=== PATIENT | male | born 1990 | race Caucasian/White ===

== ENCOUNTER 2017-04-28 19:55 | Emergency (ER) | payer SELFPAY ==
[2017-04-28 19:56] VITALS: BP 127/71; PULSE 90; RESP 16; TEMP 100.1; O2SAT 98
[2017-04-28] MEDS ORDERED: CEPH-460 PO (22:23)
[2017-04-28] MEDS ORDERED: BACT800T5 PO (22:23)
--- NOTE | 2017-04-28 22:26 | PD ---
HPI Chief Complaint: Skin Problem Time Seen by Provider: 22:17 Travel History International Travel<30 days: No Contact w/Intl Traveler<30days: No Traveled to known affect area: No History of Present Illness HPI 27-year-old white male presents to emergency department with a painful lump under his left armpit for the last 4 days. It has become increasingly red and tender. He denies any history of skin infections in the past. No fever chills. Pain is moderate. PFSH Past Medical History Medical History: Denies Significant Hx Tetanus Vaccination: < 5 Years ?: Not Past Surgical History Surgical History: No Previous Surgery Social History Alcohol Use: No Tobacco Use: Yes (PACK A DAY ) Substance Use: No Allergies-Medications (Allergen,Severity, Reaction): Coded Allergies: No Known Allergies (Unverified , 04/28/17) Reported Meds & Prescriptions Reported Meds & Active Scripts Active Keflex (Cephalexin) 500 Mg Capsule 500 Mg PO Q6H 28 Days Bactrim DS (Sulfamethoxazole-Trimethoprim) 800-160 Mg Tab 1 Tab PO BID Review of Systems Except as stated in HPI: all other systems reviewed are Neg Physical Exam Narrative GENERAL: This is a well-nourished, well-developed patient, in no apparent distress. SKIN: Patient has a tender erythematous nodular density under his left axilla consistent with a superficial abscess. There is no fluctuance or pointing. IND is not indicated at this time. This measures approximately 2 x 2 centimeters.. Warm and dry. HEAD: Atraumatic. Normocephalic. EYES: PERRL, EOMI, no discharge or injection. No scleral icterus. EARS: Clear NOSE: Nasal turbinates appear normal. THROAT: Mucosa pink and moist. Airway patent. NECK: Trachea midline. supple, moves head freely. LUNGS: Clear to auscultation. CV: Regular in rhythm. ABDOMEN: Soft nontender. EXT: No clubbing cyanosis or edema. Data Data Last Documented VS Vital Signs Date Time Temp Pulse Resp B/P (MAP) Pulse Ox O2 Delivery O2 Flow Rate FiO2 04/28/17 19:56 100.1 90 16 127/71 (89) 98 Room Air Orders Orders Cephalexin (Keflex) (04/28/17 22:30) Sulfamet-Trimeth Ds 800-160 Mg (Bactrim (04/28/17 22:30) [facility] Medical Decision Making Medical Screen Exam Complete: Yes Emergency Medical Condition: Yes Medical Record Reviewed: Yes Differential Diagnosis MDM: High Differential diagnoses: Abscess, folliculitis, cellulitis, lymphangitis, abrasion, contact dermatitis Narrative Course Patient has a developing abscess in the left axilla. No ideas indicated at this time. He is encouraged to use warm compresses and take antibiotics. Patient's given Keflex 500 and Bactrim DS here in the ER. Diagnosis Primary Impression: Abscess of left axilla Patient Instructions: General Instructions Additional Instructions: Rest. Elevation. keep clean and dry. Warm compresses. Daily wound care with soap, water and Neosporin. Three Advil every 6 hours. Bactrim DS and Keflex. Follow-up with a primary care doctor in one week. Return to the ER for any problems. Med/Other Pt SpecificInfo: Prescription(s) given Scripts Cephalexin (Keflex) 500 Mg Capsule 500 MG PO Q6H for Infection for 28 Days, CAP 0 Refills Prov: Fabi Waller MD 04/28/17 Sulfamethoxazole-Trimethoprim (Bactrim DS) 800-160 Mg Tab 1 TAB PO BID for Infection, #20 TAB 0 Refills Prov: Fabi Waller MD 04/28/17 Disposition: 01 DISCHARGE HOME Condition: Stable Chilango Noguera Apr 28, 2017 22:26
[2017-04-28] MEDS ORDERED: SULFAMETHOXAZOLE-TRIMETHOPRIM DS 800-160 MG TAB PO ONE (22:30)
[2017-04-28] MEDS ORDERED: CEPHALEXIN MONOHYDRATE 500 MG CAP PO ONE (22:30)
== END 2017-04-29 00:38 | disposition home or self-care (01) ==
LOC: NEPK 19:55
DX: L02.412 Cutaneous abscess of left axilla (principal); F17.200 Nicotine dependence, unspecified, uncomplicated
CPT/HCPCS: 99284